=== PATIENT | male | born 1940 | race Caucasian/White ===

== ENCOUNTER 2021-09-08 11:41 | Outpatient (CLI) | payer MEDICARE ==
[2021-09-08 12:28] LABS: ALT (SGPT) 17 U/L (8-55); AST (SGOT) 24 U/L (5-34); Albumin 3.3 g/dL (3.4-4.8); Alkaline Phosphatase 61 U/L (40-110); Anion Gap 14 mmol/L (10-20); BUN (Urea Nitrogen) 41 mg/dL (8.4-25.7); Bilirubin, Total 0.8 mg/dL (0.2-1.2); Calc. Creatinine Clearance 0 mL/min (70-130); Calcium 8.8 mg/dL (7.8-10.44); Carbon Dioxide 30 mmol/L (23-31); Chloride 102 mmol/L (98-107); Cholesterol 132 mg/dl (< 200 Desired); Globulin 2.1 g/dL (2.4-3.5); Glucose 74 mg/dL (83-110); HDL Cholesterol 44 mg/dL (>60 Neg Risk); LDL Cholesterol, Calculated 76 mg/dL; Protein, Total 5.4 g/dL (5.8-8.1); Sodium 141 mmol/L (136-145); Triglycerides 61 mg/dL (Less than 150)
[2021-09-08 15:33] LABS: Hemoglobin A1c 5.5 % (4.0-6.0)
[2021-09-08 16:13] LABS: Creatinine, Urine 47.95 mg/dL (63-166)
[2021-09-08 16:14] LABS: Microalbumin Urine Greater than 200.0 mg/dL (0.5-50.0)
== END 2021-09-08 11:42 | disposition home or self-care (01) ==
LOC: MADLAB 11:41
PROVIDERS: ATTEND Family Medicine
DX: E78.2 Mixed hyperlipidemia (principal); E11.65 Type 2 diabetes mellitus with hyperglycemia
CPT/HCPCS: 80053; 80061; 82043; 83036

== ENCOUNTER 2024-08-21 18:03 | Emergency (ER) | payer MEDICARE, BC ==
[2024-08-21] MEDS ORDERED: Ondansetron PF 4 MG/2 ML Vial ONE (18:37)
[2024-08-21] MEDS ORDERED: Pantoprazole 40 MG VIAL ONE (18:38)
[2024-08-21] MEDS ORDERED: Sodium Chloride 0.9% 1,000 ML ONE (18:38)
[2024-08-21 19:13] LABS: INR-International Normal Ratio 1.1; Prothrombin Time 14.5 sec (12.0-14.7)
[2024-08-21 19:14] LABS: ALT (SGPT) 10 U/L (8-55); AST (SGOT) 13 U/L (5-34); Albumin 2.2 g/dL (3.4-4.8); Alkaline Phosphatase 46 U/L (40-110); Anion Gap 15 mmol/L (10-20); BUN (Urea Nitrogen) 103 mg/dL (8.4-25.7); Bilirubin, Total 0.2 mg/dL (0.2-1.2); Calc. Creatinine Clearance 0 mL/min (70-130); Calcium 7.8 mg/dL (7.8-10.44); Carbon Dioxide 22 mmol/L (23-31); Chloride 107 mmol/L (98-107); Estimated GFR 15; Globulin 2.9 g/dL (2.4-3.5); Glucose 155 mg/dL (83-110); Lipase 101 U/L (8-78); PTT 40.5 sec (22.9-36.1); Protein, Total 5.1 g/dL (5.8-8.1); Sodium 140 mmol/L (136-145)
[2024-08-21 19:32] LABS: Band 2 % (5-11); Critical Call w/ Read Back EMS.CLJ@1902; Hematocrit 17.9 % (42.0-52.0); Hemoglobin 5.7 g/dL (14.0-18.0); Hypochromia SLIGHT = 6-15 cells (100X) (0-5/hpf); Lymphocytes 10 % (21-51); MDiff Complete? YES; Mean Corpuscular HGB CONC 32.1 g/dL (32.0-36.0); Mean Corpuscular Volume 96.8 fl (78.0-98.0); Mean Platelet Volume 5.6 fL (7.4-10.4); Monocytes 4 % (0-10); Neutrophil 84 % (42-75); Platelet Count 262 10x3/uL (130-400); RBC Distribution Width 13.8 % (11.5-14.5); Red Blood Cell (RBC) Count 1.85 mill/uL (4.70-6.10); White Blood Cell (WBC) Count 9.6 10x3/uL (4.8-10.8)
[2024-08-21] MEDS ORDERED: Lorazepam 2 MG/ML VIAL ONE (20:07)
== END 2024-08-22 01:44 | disposition short-term general hospital (02) ==
LOC: MADERS 18:03
DX: K92.2 Gastrointestinal hemorrhage, unspecified (principal); D64.9 Anemia, unspecified; E11.22 Type 2 diabetes mellitus with diabetic chronic kidney disease; N18.6 End stage renal disease; I12.0 Hypertensive chronic kidney disease with stage 5 chronic kidney disease or end stage renal disease; Z79.82 Long term (current) use of aspirin; Z79.899 Other long term (current) drug therapy
CPT/HCPCS: 36430; 70450; 74176; 80053; 82271; 83605; 83690; 85025; 85610; 85730; 86850; 86900; 86901; 86920; 87040; 93005; J2060; J2405; J2470; J7030; P9016; 36415; 96365; 96375